=== PATIENT | female | born 1975 | race Caucasian/White ===

== ENCOUNTER 2018-10-13 18:59 | Emergency (ER) | payer OTHER ==
[~2018-10-13] VITALS: Ht 160 cm; Wt 108.9 kg
[~2018-10-13 18:59] MED LIST: CLARITIN; FLONASE; SOMA; VICODIN
[2018-10-13 19:10] VITALS: BP 144/74
--- NOTE | 2018-10-13 19:10 | NUR ---
TO BED # 06 AMBULATORY
--- NOTE | 2018-10-13 19:30 | NUR ---
PATIENT PRESENTS TO ED WITH C/O SORE THROAT AND COUGH X1 WEEK. PT SEEN IN AN UNGENT CARE EARLIER TODAY AND BREATHING TREATMENT WAS ADMINISTERED. SHE WAS INSTRUCTED TO PRESENT TO A ER FOR FURTHER EVALUATION OF POSSIBLE PNA. PT DENIES NAUSEA, VOMITING. +FEVERS. PT STATES PAIN IS 8/10 AT THIS TIME. VSS. POSITIONED FOR COMFORT; HOB ELEVATED. PENDING ER MD EVALUATION.
[2018-10-13] MEDS ORDERED: methylPREDNISolone SS 125 MG/2 ML VIAL IM ONE (20:10)
[2018-10-13] MEDS ORDERED: ALBUTEROL SULFATE/IPRATROPIU 3 ML SOL IH ONE (20:10)
--- NOTE | 2018-10-13 20:19 | NUR ---
x ray at bedside
--- NOTE | 2018-10-13 20:31 | NUR ---
RT NOTIFIED FOR BREATHING TX
[2018-10-13] MEDS ORDERED: BUDESONIDE 0.5 MG/2 ML NEBU INH ONE (20:55)
[2018-10-13] MEDS ORDERED: ALBUTEROL 0.083% 2.5 MG/3 ML NEBU INH ONE (20:55)
--- NOTE | 2018-10-13 21:12 | NUR ---
Pt report given to ZENAIDA Valdez. Transfer of care at this time.
--- NOTE | 2018-10-13 21:53 | NUR ---
Respiratory Therapist at bedside for respiratory intervention. Patient tolerated TX WELL.
--- NOTE | 2018-10-13 22:12 | NUR ---
Patient discharged with v/s stable. Written and verbal after care instructions given and explained. Patient alert, oriented and verbalized understanding of instructions. Ambulatory with steady gait. All questions addressed prior to discharge. ID band removed. Patient advised to follow up with PMD. Rx of PREDNISONE AND ALBUTEROL given. Patient educated on indication of medication including possible reaction and side effects. Opportunity to ask questions provided and answered.
[2018-10-13 22:13] VITALS: BP 140/76
--- NOTE | 2018-10-13 22:14 | NUR ---
10 MG ALBUTEROL BREATHING TREATMENT GIVEN OVER 1HOUR CONTINUOUS NEBULIZER. BEGAN TREATMENT AT 2105. 0.5 MG PULMICORT GIVEN AT 2200. PATIENT STATES TO BE "FEELING BETTER". INCREASED AERATION POST BREATHING TREATMENT.
== END 2018-10-13 22:13 | disposition home or self-care (01) ==
LOC: MED 18:59
DX: J45.901 Unspecified asthma with (acute) exacerbation (principal); Z79.899 Other long term (current) drug therapy
CPT/HCPCS: 71045; 81025; 94640; 94645; 96372; 99285; J2930; J7613; J7620; J7626; Q0092

== ENCOUNTER 2023-10-09 09:49 | Emergency (ER) | payer MEDICAID, OTHER ==
[~2023-10-09] VITALS: Ht 162.6 cm; Wt 113.4 kg
[2023-10-09 10:02] VITALS: BP 135/82; PULSE 97; RESP 20; TEMP 98.2; O2SAT 98
[2023-10-09] MEDS: MORPHINE SULFATE 4 MG/ML SYR IVP ONE (10:46)
[2023-10-09] MEDS: ONDANSETRON 4 MG/2 ML VIAL IVP ONE (10:47)
[2023-10-09] MEDS: NACL 0.9% 1,000 ML IV ONE (10:47)
[2023-10-09 11:00] LABS: BASOPHILS # (AUTO) 0.1 K/uL (0.00-0.22); BASOPHILS % (AUTO) 0.7 % (0.0-2.0); EOSINOPHILS # (AUTO) 0.1 K/uL (0-0.4); EOSINOPHILS % (AUTO) 1.1 % (0.0-4.0); HEMATOCRIT 47.1 % (36-48); HEMOGLOBIN 16.6 g/dL (12.0-16.0); LYMPHOCYTES % (AUTO) 22.6 % (20.5-51.1); MEAN CORPUSCULAR HEMOGLOBIN 31 pg (27-31); MEAN CORPUSCULAR HGB CONC 35 g/dL (33-37); MEAN CORPUSCULAR VOLUME 87.7 fL (80-94); MONOCYTES # (AUTO) 0.5 K/uL (0.8-1.0); NEUTROPHILS # (AUTO) 6.1 K/uL (1.8-7.7); NEUTROPHILS % (AUTO) 69.6 % (42.2-75.2); PLATELET COUNT (AUTO) 295 K/uL (140-450); RED BLOOD CELL COUNT(AUTO) 5.37 MIL/uL (4.20-5.40); RED CELL DISTRIBUTION WIDTH 13.2 % (11.6-13.7); WHITE BLOOD COUNT (AUTO) 8.7 K/uL (4.8-10.8)
[2023-10-09 11:16] LABS: ANION GAP 18.2 (8-16); CALCIUM 10.1 mg/dL (8.5-10.1); CARBON DIOXIDE 22.6 mmol/L (21-32); CREATININE 0.8 mg/dL (0.6-1.3); POTASSIUM 4.8 mmol/L (3.5-5.1)
[2023-10-09 11:26] LABS: FLU B ANTIGEN negative (NEGATIVE)
[2023-10-09 11:28] LABS: FLU A ANTIGEN POSITIVE (NEGATIVE)
[2023-10-09 12:27] LABS: ALANINE AMINOTRANSFERASE 19 U/L (12-78); ALBUMIN 3.7 g/dL (3.4-5.0); ALKALINE PHOSPHATASE 94 U/L (50-136); ASPARTATE AMINOTRANSFERASE 14 U/L (15-37); BILIRUBIN,DIRECT 0.1 mg/dL (0.0-0.3); LIPASE 24 U/L (16-77); TOTAL BILIRUBIN 0.6 mg/dL (0.0-1.0); TOTAL PROTEIN, SERUM 7.5 g/dL (6.4-8.2)
[2023-10-09] MEDS ORDERED: NAPR-337 PO (13:13)
[2023-10-09] MEDS ORDERED: PROM118S5 PO (13:13)
[2023-10-09] MEDS ORDERED: ATRO1TAB PO (13:13)
[2023-10-09] MEDS ORDERED: ONDA-188 PO (13:13)
[2023-10-09] MEDS ORDERED: TAM75 PO (13:13)
[2023-10-09 13:27] VITALS: BP 118/89; PULSE 75; RESP 18; TEMP 98; O2SAT 98
== END 2023-10-09 13:28 | disposition home or self-care (01) ==
LOC: MED 09:49
DX: J10.1 Influenza due to other identified influenza virus with other respiratory manifestations (principal); E86.0 Dehydration; R11.2 Nausea with vomiting, unspecified; R19.7 Diarrhea, unspecified; F32.9 Major depressive disorder, single episode, unspecified; R10.84 Generalized abdominal pain; Z20.822 Contact with and (suspected) exposure to COVID-19; J45.909 Unspecified asthma, uncomplicated; F41.9 Anxiety disorder, unspecified; M19.90 Unspecified osteoarthritis, unspecified site; Z79.1 Long term (current) use of non-steroidal anti-inflammatories (NSAID); Z79.899 Other long term (current) drug therapy
CPT/HCPCS: 36415; 71045; 74176; 80048; 80076; 83690; 84484; 84703; 85025; 87426; 87804; 93005; 96361; 96374; 96375; 99285; J2270; J2405; J7030; Q0092

== ENCOUNTER 2024-01-19 17:01 | Emergency (ER) | payer MEDICAID, OTHER ==
[~2024-01-19] VITALS: Ht 160 cm; Wt 102.3 kg
[~2024-01-19 17:01] MED LIST changes: +ATRO1TAB PO; +NAPR-337 PO; +ONDA-188 PO; +PROM118S5 PO; +TAM75 PO
[2024-01-19 17:13] VITALS: BP 173/84; PULSE 94; RESP 28; TEMP 98.6; O2SAT 100
[2024-01-19] MEDS ORDERED: ALBUTEROL SULFATE/IPRATROPIU 3 ML SOL IH ONE (17:27)
[2024-01-19 17:30] VITALS: PULSE 86; RESP 20; O2SAT 100
[2024-01-19] MEDS: ALBUTEROL SULFATE/IPRATROPIU 3 ML SOL IH ONE (17:34)
[2024-01-19] MEDS ORDERED: predniSONE 20 MG TAB ONE (18:34)
[2024-01-19] MEDS: predniSONE 20 MG TAB PO ONE (18:39)
[2024-01-19] MEDS ORDERED: NIRM1TAB9 PO (18:45)
[2024-01-19] MEDS ORDERED: ALBU0.0912 IH (18:45)
[2024-01-19] MEDS ORDERED: PRED20TA5 PO (18:45)
[2024-01-19] MEDS ORDERED: DEXT30SE7 PO (18:46)
== END 2024-01-19 19:01 | disposition home or self-care (01) ==
LOC: MED 17:01
DX: U07.1 COVID-19 (principal); J06.9 Acute upper respiratory infection, unspecified; J45.901 Unspecified asthma with (acute) exacerbation; F41.9 Anxiety disorder, unspecified; F32.A Depression, unspecified; E78.00 Pure hypercholesterolemia, unspecified; Z79.899 Other long term (current) drug therapy
CPT/HCPCS: 71045; 94640; 99283; J7512; Q0092